=== PATIENT | female | born 1970 | race Caucasian/White ===

== ENCOUNTER → 2020-05-23 08:12 | Outpatient (BNVA) | payer OTHER, SELFPAY | PROVIDERS: Family Provider Nurse Practitioner Family; PCP Nurse Practitioner Family; Visit Provider Internal Medicine | DX: E03.9 Hypothyroidism, unspecified (principal); I10 Essential (primary) hypertension; R53.83 Other fatigue | CPT/HCPCS: 99204 ==

== ENCOUNTER → 2020-06-02 11:03 | Outpatient (BNVA) | payer OTHER, SELFPAY | PROVIDERS: Family Provider Nurse Practitioner Family; PCP Nurse Practitioner Family; Visit Provider Nurse Practitioner Family | DX: E03.9 Hypothyroidism, unspecified (principal) | CPT/HCPCS: 84439; 84443; 86376 ==

== ENCOUNTER 2020-07-28 08:35 | Outpatient (CLI) | payer OTHER, SELFPAY ==
--- NOTE | 2020-07-28 08:50 | MM_ITS ---
WS: [id number] SCREENING DIGITAL MAMMOGRAM WITH CAD HISTORY: SCREENING COMPARISON: 03/05/2019 and 03/03/2018 Bilateral CC and MLO views submitted. Computer aided detection analyzed. Breast composition: There are scattered areas of fibroglandular density. Ovoid asymmetry measuring 10 mm in the medial LEFT breast is probably at the nipple line on the lateral projection. Asymmetry is not as well seen on the lateral projection. RIGHT breast is negative. MM/[place] [id number] IMPRESSION: BI-RADS: 0-Incomplete: Need additional imaging evaluation FOLLOW UP: Need Additional Imaging LEFT breast: Spot compression views (CC and MLO). True ML. Ultrasound to follow if abnormality persists.
== END 2020-07-28 08:36 | disposition home or self-care (01) ==
LOC: RADSHAW 08:37
PROVIDERS: PCP Nurse Practitioner Family; Visit Provider Nurse Practitioner Family
DX: Z12.31 Encounter for screening mammogram for malignant neoplasm of breast (principal)
CPT/HCPCS: 77067

== ENCOUNTER 2020-08-09 10:11 | Outpatient (CLI) | payer OTHER, SELFPAY ==
--- NOTE | 2020-08-09 10:18 | US_ITS ---
WS: [id number] ADDITIONAL VIEWS LEFT MAMMOGRAM LEFT BREAST ULTRASOUND HISTORY: R92.8 - Other abnormal and inconclusive findings on mammogram... COMPARISON: 07/28/2020 LEFT MAMMOGRAM: Spot compression views and true ML. Lobulated mass measuring 7 x 8 mm, 9:00 LEFT breast persists with additional views. No associated cyn cifications. Nodule is at and anterior to middle depth. LEFT BREAST ULTRASOUND, 03/05/2019 and 03/03/2018 2-D and color Doppler imaging submitted. Ultrasound at 9:00 demonstrates a cluster of cysts or small cyst with septations measuring 8 x 4 x 8 mm. No increased vascularity. This corresponds in size and appearance to the mammographic abnormality . US/US breast LT limited* [id number] IMPRESSION: BI-RADS: 3-Probably Benign FOLLOW UP: 6 Month Follow-up Recommend Limited LEFT breast ultrasound in 6 months to reevaluate the complex cyst at 9:00.
== END 2020-08-09 10:12 | disposition home or self-care (01) ==
LOC: RADSHAW 10:15
PROVIDERS: PCP Nurse Practitioner Family; Visit Provider Nurse Practitioner Family
DX: R92.8 Other abnormal and inconclusive findings on diagnostic imaging of breast (principal); N60.02 Solitary cyst of left breast
CPT/HCPCS: 76642; 77065

== ENCOUNTER → 2020-10-02 08:55 | Outpatient (BNVA) | payer OTHER, SELFPAY | PROVIDERS: PCP Nurse Practitioner Family; Visit Provider Obstetrics & Gynecology | DX: I10 Essential (primary) hypertension (principal); N95.1 Menopausal and female climacteric states | CPT/HCPCS: 83001 ==

== ENCOUNTER → 2021-02-07 10:25 | Outpatient (BNVA) | payer OTHER, SELFPAY | PROVIDERS: PCP Nurse Practitioner Family; Visit Provider Internal Medicine | DX: E03.9 Hypothyroidism, unspecified (principal); R53.83 Other fatigue; Z72.820 Sleep deprivation | CPT/HCPCS: 99213 ==

== ENCOUNTER 2021-03-13 10:46 | Outpatient (CLI) | payer OTHER, SELFPAY ==
--- NOTE | 2021-03-13 11:00 | US_ITS ---
WS: [id number] ULTRASOUND LEFT BREAST HISTORY: Six-month follow-up complex cyst at 9:00. COMPARISON: 08/09/2020 TECHNIQUE: 2-D and Doppler. Complex cyst with a small septation at 9:00 at the subareolar region measures 8 x 10 x 5 mm. No incre ased vascularity. No significant increase in size taking into consideration difference in scanning te chnique. No solid component. US/US breast LT limited* [id number] IMPRESSION: BI-RADS: 3-Probably Benign FOLLOW-UP: 6 Month Follow-up Patient to return in July 2021 for annual mammogram. At that time this complex c yst should undergo ultrasound evaluation to document continued stability.
== END 2021-03-13 10:47 | disposition home or self-care (01) ==
LOC: RAD 10:48
PROVIDERS: PCP Nurse Practitioner Family; Visit Provider Nurse Practitioner Family
DX: R92.8 Other abnormal and inconclusive findings on diagnostic imaging of breast (principal)
CPT/HCPCS: 76642

== ENCOUNTER 2021-06-19 09:23 | Day surgery (SDC) | payer OTHER, SELFPAY ==
[2021-06-18 13:53] VITALS: BMI 35.5
[2021-06-19] VITALS (15 sets, daily range): BP systolic 156–212; BP diastolic 86–127; PULSE 60–77; RESP 14–22; TEMP 36.1–37.2; O2SAT 94–99
--- NOTE | 2021-06-19 | US_ITS ---
WS: [id number] ULTRASOUND-GUIDED LEFT BREAST NEEDLE LOCALIZATION CLINICAL INFORMATION: left breast lumpectomy and needle localization COMPARISON: March 13, 2021 FINDINGS: The procedure including risks, benefits, and complications were discussed with the patient who agreed to proceed. Using sterile technique patient was prepped and draped in the usual sterile fashion. Aft er 1% lidocaine utilizing real-time ultrasound guidance 7 cm Kopan's needle was advanced through the 9:00 subareolar breast lesion. Localization wire was deployed and needle was removed. No immediate co mplications. Surgical specimen demonstrates en block resection of the localization wire with gross total resection of the 9:00 lesion. US/US surgical specimen IMPRESSION: 1. Uncomplicated ultrasound-guided LEFT breast wire localization 9:00 position 2. The pathology demonstrates: -Benign breast tissue with apocrine metaplasia, focal chronic inflammation and adenosis. -Microcalcification identified. -Cautery artifact. -Margins are uninvolved and viable. -No malignancy identified. BI-RADS: 2-Benign FOLLOW UP: 1 Year Follow-up Recommend return to annual screening mammography.
--- NOTE | 2021-06-19 09:34 | US_ITS ---
WS: [id number] ULTRASOUND-GUIDED LEFT BREAST NEEDLE LOCALIZATION CLINICAL INFORMATION: left breast lumpectomy and needle localization COMPARISON: March 13, 2021 FINDINGS: The procedure including risks, benefits, and complications were discussed with the patient who agreed to proceed. Using sterile technique patient was prepped and draped in the usual sterile fashion. Aft er 1% lidocaine utilizing real-time ultrasound guidance 7 cm Kopan's needle was advanced through the 9:00 subareolar breast lesion. Localization wire was deployed and needle was removed. No immediate co mplications. Surgical specimen demonstrates en block resection of the localization wire with gross total resection of the 9:00 lesion. US/[place] [id number] IMPRESSION: 1. Uncomplicated ultrasound-guided LEFT breast wire localization 9:00 position 2. The pathology demonstrates: -Benign breast tissue with apocrine metaplasia, focal chronic inflammation and adenosis. -Microcalcification identified. -Cautery artifact. -Margins are uninvolved and viable. -No malignancy identified. BI-RADS: 2-Benign FOLLOW UP: 1 Year Follow-up Recommend return to annual screening mammography.
[2021-06-19 09:58] LABS: OR HCG Qualitative Urine Negative (Negative)
--- NOTE | 2021-06-19 10:26 | SUR.PREOP ---
PATIENT TO RADIOLOGY
--- NOTE | 2021-06-19 11:14 | SUR.PREOP ---
returned from radiology.
[2021-06-19] MEDS: sodium chloride 0.9% 1,000 ML 30 ML IV (11:15)
[2021-06-19] MEDS: acetaminophen 1,000 MG/100 ML PIGGYBACK 400 MG IV (11:16)
--- NOTE | 2021-06-19 11:58 | ANES.PREANE2 ---
Pre-Anesthetic Assessment Height/Weight: Height 1.68 m Weight 99.79 kg Temp Pulse Resp BP Pulse Ox 98.9 F 60 16 170/87 97 06/19/21 10:00 06/19/21 10:00 06/19/21 10:00 06/19/21 10:00 06/19/21 10:00 Preop Diagnosis: Left breast cyst Operation Date: 06/19/21 12:05 Proposed Procedures p Breast Biopsy Needle Localization [id number]/R92.8(Left) - Dennis Arthur MD Familial anesthetic complications: None Was Beta Juve taken within 24 hours: Yes Was Clonidine taken within 24 hours: N/A Last intake: Intake Last Liquid Date 06/18/21 Last Liquid Time 20:00 Last Solid Date 06/18/21 Last Solid Time 19:30 Social No alcohol and No tobacco Exam alert, oriented x 3, clear to auscultation bilaterally and regular rate & rhythm Airway Submandibular: within normal limits Cervical ROM: within normal limits Mallampati: Class II Dentition: full CV/HEM Hypertension Metabolic Thyroid [place] [facility] [place] [place] Back Pain Anesthetic Plan ASA status: 2 Anesthesia: Choice Risk of > 500 ml blood loss (7ml/kg in children): No Medications/Allergies Home Medications Medication Instructions Recorded Confirmed Last Taken Type amlodipine 5 mg tablet 5 mg PO DAILY PRN tab 10/02/20 06/19/21 03/28/21 History levothyroxine 75 mcg capsule 75 mcg PO DAILY #90 cap 11/28/20 06/19/21 06/19/21 Rx (Tirosint) liothyronine 5 mcg tablet (Cytomel) 5 mcg PO DAILY #90 tab 04/12/21 06/19/21 06/19/21 Rx promethazine-DM 6.25 mg-15 mg/5 mL 5 ml PO Q6H PRN 7 Days #118 ml 04/12/21 06/18/21 Unknown Rx oral syrup fluticasone propionate 50 1 spray INTRANASAL BID 06/18/21 06/19/21 06/18/21 History mcg/actuation nasal spray,suspension (Flonase Allergy Relief) ibuprofen 800 mg tablet 800 mg PO TID PRN 06/18/21 06/19/21 06/14/21 History latanoprost 0.005 % eye drops 1 drp OPHTHALMIC (EYE) DAILY 06/18/21 06/19/21 06/18/21 20:00 History metoprolol tartrate 50 mg tablet 50 mg PO BID 06/18/21 06/19/21 06/19/21 07:00 History norgestimate-ethinyl estradiol 1 tab PO DAILY 06/18/21 06/19/21 06/18/21 History 0.18 mg/0.215mg/0.25mg-35 mcg(28)tablet (Tri-Previfem (28)) Allergies Allergy/AdvReac Type Severity Reaction Status Date / Time cephalexin [From Keflex] Allergy swelling Verified 04/12/21 09:40 sulfamethoxazole Allergy sores in Verified 04/12/21 09:40 [From Bactrim] mouth trimethoprim [From Bactrim] Allergy sores in Verified 04/12/21 09:40 mouth Current Medications Generic Name Dose Route Start Last Admin Trade Name Freq PRN Reason Stop Dose Admin Sodium Chloride 1,000 mls @ 30 mls/hr 06/19/21 09:45 06/19/21 11:15 Sodium Chloride 0.9% IV 06/20/21 09:44 30 mls/hr .Q24H VLAD Administration PFSH Anesthesia Medical History (Updated 04/12/21 @ 10:14 by YEYO Lopez) Abnormal mammogram Acute bacterial sinusitis Anxiety and depression Chronic low back pain Cough Environmental and seasonal allergies Essential hypertension Herniated disc Hyperlipidemia Hypothyroidism Lower respiratory infection Surgical History History of back surgery herniated disc Surgergies 1998 and 2003 [place], [place] History of kidney surgery Family History Mother Cancer Thyroid condition Father Heart disease Grandmother Stroke paternal Grandfather Heart disease paternal Family/Other Breast cancer maternal aunt, age onset unknown Denies family history of Colon cancer Ovarian cancer Diabetes Clotting disorder Hyperlipidemia Anesthesia complication Bleeding disorder Hypertension Uterine cancer Social History Alcohol intake: never Data Anesthesia Cardiac Studies: No Data to Display
--- NOTE | 2021-06-19 13:12 | P.HP_ITS ---
Same Day Surgery H&P Indication for Procedure/HPI DATE OF PROCEDURE: June 19, 2021 CHIEF COMPLAINT/INDICATIONFOR SURGICAL PROCEDURE: Left breast lump PREOP DIAGNOSIS: Left breast cyst PLANNED PROCEDURE: Operation Date: 06/19/21 12:05 Proposed Procedures p Breast Biopsy Needle Localization [id number]/R92.8(Left) - Dennis Arthur MD 04/05/2021 This is a pleasant 52 years old female patient referred to my practice with history of left breast cyst that was found on ultrasound: Complex cyst with a small septation at 9:00 at the subareolar region measures 8 x 10 x 5 mm. No increased vascularity. No significant increase in size taking into consideration difference in scanning technique. No solid component. Previous breast biopsies not applicable Personal or family history of breast cancer patient's mom's great aunt Age of menarche 13 years History of menstrual cycles regular History of control pills for 30 years Obstetric history? A0 Mode of delivery vaginal Breast-feeding history no breast-feeding No nipple discharge Self breast examination applicable The patient was found to have a spot on screening mammography Lobulated mass measuring 7 x 8 mm, 9:00 LEFT breast persists with additional views. No associated calcifications. Nodule is at and anterior to middle depth. And patient comes to my practice today interested in removal of the cyst and she is not interested to have follow-up imaging studies ? Peripheral history 06/19/2021 Patient comes today for excision of left breast mass preceded by ultrasound guided needle localization. ROS All systems have been reviewed negative except as per the above or per problem list Medications/Allergies* Home Medications Medication Instructions Recorded Confirmed Type amlodipine 5 mg tablet 5 mg PO DAILY PRN tab 10/02/20 06/19/21 History fluticasone propionate 50 1 spray INTRANASAL BID 06/18/21 06/19/21 History mcg/actuation nasal spray,suspension (Flonase Allergy Relief) ibuprofen 800 mg tablet 800 mg PO TID PRN 06/18/21 06/19/21 History latanoprost 0.005 % eye drops 1 drp OPHTHALMIC (EYE) DAILY 06/18/21 06/19/21 History metoprolol tartrate 50 mg tablet 50 mg PO BID 06/18/21 06/19/21 History norgestimate-ethinyl estradiol 1 tab PO DAILY 06/18/21 06/19/21 History 0.18 mg/0.215mg/0.25mg-35 mcg(28)tablet (Tri-Previfem (28)) Allergies/Adverse Reactions Allergy/AdvReac Type Severity Reaction Status Date / Time cephalexin [From Keflex] Allergy swelling Verified 06/19/21 13:16 sulfamethoxazole Allergy sores in Verified 06/19/21 13:16 [From Bactrim] mouth trimethoprim [From Bactrim] Allergy sores in Verified 06/19/21 13:16 mouth Current Medications: Generic Name Dose Route Start Last Admin Trade Name Freq PRN Reason Stop Dose Admin Sodium Chloride 1,000 mls @ 30 mls/hr 06/19/21 09:45 06/19/21 11:15 Sodium Chloride 0.9% IV 06/20/21 09:44 30 mls/hr .Q24H VLAD Administration Pertinent History/Comorbid Conditions* Medical History (Updated 04/12/21 @ 10:14 by YEYO Lopez) Abnormal mammogram Acute bacterial sinusitis Anxiety and depression Chronic low back pain Cough Environmental and seasonal allergies Essential hypertension Herniated disc Hyperlipidemia Hypothyroidism Lower respiratory infection Surgical History (Updated 10/21/19 @ 22:16 by YEYO Lopez) History of back surgery herniated disc Surgergies 1998 and 2003 [place], [place] History of kidney surgery Family History (Updated 10/02/20 @ 07:56 by Anahi White RN) Heart disease Father Grandfather paternal Breast cancer Family/Other maternal aunt, age onset unknown Cancer Mother Thyroid condition Mother Stroke Grandmother paternal Denies family history of Colon cancer Ovarian cancer Diabetes Clotting disorder Hyperlipidemia Anesthesia complication Bleeding disorder Hypertension Uterine cancer Social History Alcohol intake: never Pertinent Exam Findings alert, oriented x 3, regular rate & rhythm and operative site marked (Left breast was marked in the presence of Conch[employer] nursing staff female chaper) Recommendations Surgery/Procedure today (Excision of left breast lump with needle localization) Coding Level of Care Code Acute Drawer In [employer]oom for Ernie Quintero
[2021-06-19] MEDS: clindamycin 900 MG/50 ML PREMIX 100 MG IV (13:23)
[2021-06-19] MEDS: lidocaine 2% INJ 20 mL INJECTION (14:31)
--- NOTE | 2021-06-19 14:53 | PM.OP ---
Operative Report Date of procedure: June 19, 2021 Pre-op diagnosis: Preop Diagnosis Left breast cyst Post-op diagnosis: same Procedure done: Left partial mastectomy with needle localization Specimens removed/disposition: Left partial mastectomy needle localization wire patrick lateral and short sutures marked superior and long sutures marked posterior Surgeon: Dennis Arthur MD Pulp Mill Supervisor: Surgical davidson Bardales Circulating nurse Cynthia Anesthesia: General (LMA IMAGE ASSEMBLER Shobha) Estimated blood loss: 10 ml Brief History: After patient undergone a needle localization at Radiology Department. Under ultrasound guidance patient was brought to the holding area, I did discuss the images with Dr. Ahumada prior to the procedure. After identifying the patient holding area, the left breast was marked before the procedure by myself, patient was then taken to the operative suite, was placed in supine position, intubated by anesthesia, prophylactic IV antibiotics were given per protocol, left arm was placed in 90? to her body, I was able to take down the tape and dressing on top of the wire without jeopardizing it ,prep and drape of the left pectoralis region was done under the usual sterile technique. Time-out was done verifying the patient's name/date of /planned procedure and destination after the procedure, all were in agreement. After identifying the direction of the wire.I did perform a transverse incision at the site of entrance of the needle used for the localization , dissection was carried on using electrocautery. The localization wire was grasped and pulled into the incision and dissection continued towards the tip of the wire. The breast tissue containing the sonographic abnormality was grasped with Allis forceps and using electrocautery the specimen was dissected free from the surrounding tissue.good margin of normal breast tissue surrounding the mass , and and the specimen was taken out and passed to the circulating nurse to send for radiology and pathology department Specimen was oriented with short suture superior and long suture posterior and needle localization oriented lateral. The specimen was in the form of left partial mastectomy. Later we got the clearance from radiology department that the sonographic abnormality was all included in the specimen.Thorough irrigation of the cavity was done and hemostasis, followed by deep dermal closure by 2-0 Vicryl, then 3-0 Vicryl then 4-0 Monocryl for skin closure followed by Mastisol and Steri-Strips. Lidocaine 2% was injected at the site of the incision. Pressure dressing was applied followed by fluffs and a sports bra Patient tolerated the procedure well, count of instruments and sponges were completed at the end of the procedure. And then patient was taken to the recovery area in stable condition. I was present for the whole entire procedure Procedure: Left partial mastectomy with needle localization Ultrasound specimen was cleared by Dr. Mejía Closure in layers Mastisol Steri-Strip
[2021-06-19] MEDS: hyDRALAzine 20 mg/mL INJ 1 mL 10 MG IVP (15:30)
--- NOTE | 2021-06-19 15:50 | ANE.PACU2 ---
Inpatient post-anesthesia follow up: Airway intact: Yes Vital signs: Temperature 97 F Pulse Rate 65 Respiratory Rate 21 Blood Pressure 163/105 Pulse Oximetry 97 Oxygen Delivery Me thod Room Air Oxygen Flow Rate Fraction of Inspir ed Oxygen Hydration adequate: Yes Nausea and vomiting: No Pain level: 1 Mental status: Baseline Additional Comments: Some hypertension, rx'd with hydralazine
[2021-06-19] MEDS: HYDROcodone-acetaminophen 5-325 mg Tablet 1 TAB PO (16:15)
== END 2021-06-19 16:28 | disposition home or self-care (01) ==
PROVIDERS: PCP Nurse Practitioner Family; Visit Provider Surgery
PROC: (CPT 19301; principal; 2021-06-19 12:00)
DX: N60.02 Solitary cyst of left breast (principal); I10 Essential (primary) hypertension; E78.5 Hyperlipidemia, unspecified; E03.9 Hypothyroidism, unspecified
CPT/HCPCS: 19301; 19285; 84703; 88307; C1889; J0360; J1100; J2405; J2704; J3010; J3490; J7030

== ENCOUNTER 2021-08-22 11:00 | Outpatient (CLI) | payer OTHER, SELFPAY | END 2021-08-22 11:01 | disposition home or self-care (01) | LOC: SLEEP 08-23 16:39 | PROVIDERS: PCP Nurse Practitioner Family; Visit Provider Internal Medicine | DX: G47.33 Obstructive sleep apnea (adult) (pediatric) (principal) | CPT/HCPCS: G0399 ==

== ENCOUNTER → 2021-10-05 11:03 | Outpatient (BNVA) | payer OTHER, SELFPAY | PROVIDERS: PCP Nurse Practitioner Family; Visit Provider Nurse Practitioner | DX: Z00.00 Encounter for general adult medical examination without abnormal findings (principal) | CPT/HCPCS: 88175 ==

== ENCOUNTER → 2021-12-07 11:42 | Outpatient (BNVA) | payer OTHER, SELFPAY | PROVIDERS: PCP Nurse Practitioner Family; Visit Provider Nurse Practitioner Family | DX: Z01.89 Encounter for other specified special examinations (principal) | CPT/HCPCS: 87070; 87176; 87186; 87205 ==

== ENCOUNTER 2022-01-14 07:50 | Outpatient (CLI) | payer OTHER, SELFPAY ==
--- NOTE | 2022-01-14 08:00 | US_ITS ---
WS: [id number] ULTRASOUND BREAST LEFT TECHNIQUE: Ultrasound left breast focused area of concern. CLINICAL INFORMATION: T81.30XA - Disruption of wound, unspecified, initial enco... COMPARISON: March 13, 2021 FINDINGS: Ultrasound LEFT breast 9:00 position and 2:00 position. Cyst was removed at the 9:00 o'clock position . No evidence of residual cystic lesion in this area. Ultrasound 2:00 position in the area of wound/ulceration. No evidence of drainable fluid collection o r abscess in this area. No other suspicious findings. US/US breast LT complete [id number] IMPRESSION: Recommend annual screening mammography. BI-RADS 2 benign FOLLOW UP: 1 year
== END 2022-01-14 07:51 | disposition home or self-care (01) ==
PROVIDERS: PCP Nurse Practitioner Family; Visit Provider Surgery
DX: T81.30XA Disruption of wound, unspecified, initial encounter (principal)
CPT/HCPCS: 76641

== ENCOUNTER 2022-02-05 10:20 | Day surgery (SDC) | payer OTHER, SELFPAY ==
[2022-02-04 12:45] VITALS: BMI 34.2
[2022-02-05] VITALS (7 sets, daily range): BP systolic 120–142; BP diastolic 74–91; PULSE 60–69; RESP 12–18; TEMP 36.4–36.8; O2SAT 95–99
--- NOTE | 2022-02-05 11:06 | ANES.PREANE2 ---
Pre-Anesthetic Assessment Height/Weight: Height 1.68 m Weight 96.162 kg Temp Pulse Resp BP Pulse Ox O2 Del Method 97.5 F L 61 18 120/74 99 02/05/22 10:48 02/05/22 10:48 02/05/22 10:48 02/05/22 10:48 02/05/22 10:48 02/05/22 10:49 Preop Diagnosis: Left breast wound Operation Date: 02/05/22 12:00 Proposed Procedures p : Debridement of Left Breast Wound CPT-22672 L98.492(Left) - Dennis Arthur MD Familial anesthetic complications: None Was Beta Juve taken within 24 hours: N/A Was Clonidine taken within 24 hours: N/A Last intake: Intake Last Liquid Date 02/04/22 Last Liquid Time 20:00 Last Solid Date 02/04/22 Last Solid Time 18:00 Social No alcohol and No tobacco Exam alert, oriented x 3, clear to auscultation bilaterally and regular rate & rhythm Airway Mallampati: Class II Dentition: full Pulmonary Sleep Apnea (Mild) CV/HEM Hypertension Metabolic Thyroid Disease Anesthetic Plan ASA status: 3 Anesthesia: General Risk of > 500 ml blood loss (7ml/kg in children): No Medications/Allergies Home Medications Medication Instructions Recorded Confirmed Last Taken Type fluticasone propionate 50 1 spray intranasal BID 06/18/21 02/04/22 06/18/21 History mcg/actuation nasal spray,suspension (Flonase Allergy Relief) ibuprofen 800 mg tablet 800 mg PO TID PRN Pain 06/18/21 02/05/22 01/29/22 History latanoprost 0.005 % eye drops 1 drp ophthalmic (eye) DAILY 06/18/21 02/04/22 02/04/22 History liothyronine 5 mcg tablet (Cytomel) 5 mcg PO DAILY #90 tabs 08/07/21 02/05/22 02/05/22 07:30 Rx norgestimate-ethinyl estradiol 1 tab PO DAILY #28 tabs 10/08/21 02/05/22 02/04/22 Rx 0.18 mg/0.215mg/0.25mg-35 mcg(28)tablet clonidine HCl 0.1 mg tablet 0.1 mg PO BID PRN hypertensive 10/30/21 02/05/22 Unknown Rx emergency #30 tabs levothyroxine 75 mcg capsule 75 mcg PO DAILY #90 caps 11/12/21 02/04/22 02/05/22 07:00 Rx (Tirosint) amlodipine 10 mg tablet 10 mg PO DAILY #90 tabs 11/19/21 02/04/22 02/05/22 07:30 Rx metoprolol tartrate 50 mg tablet See Rx Instructions .Route 01/14/22 02/05/22 02/05/22 07:30 Rx .COMPLEX #60 tabs Allergies Allergy/AdvReac Type Severity Reaction Status Date / Time cephalexin [From Keflex] Allergy swelling Verified 02/05/22 10:41 [facility] Anesthesia Medical History Abnormal mammogram Acute bacterial sinusitis Anxiety and depression Chronic low back pain Cough Environmental and seasonal allergies Essential hypertension Herniated disc Hyperlipidemia Hypothyroidism Lower respiratory infection Surgical History History of back surgery herniated disc Surgergies 1998 and 2003 [place], [place] History of kidney surgery Family History Mother Cancer Thyroid condition Father Heart disease Grandmother Stroke paternal Grandfather Heart disease paternal Family/Other Breast cancer maternal aunt, age onset unknown Denies family history of Colon cancer Ovarian cancer Diabetes Clotting disorder Hyperlipidemia Anesthesia complication Bleeding disorder Hypertension Uterine cancer Social History Smoking and tobacco status: never smoked Alcohol intake: never Female Reproductive History Date of last menstrual period: 01/28/22 Data Anesthesia Cardiac Studies: No Data to Display
[2022-02-05] MEDS: heparin 5,000 unit/mL INJ 1 mL 2000 UNIT SUBCUT (11:16)
[2022-02-05] MEDS: sodium chloride 0.9% 1,000 ML 30 ML IV (11:52)
[2022-02-05] MEDS: acetaminophen 1,000 MG/100 ML PIGGYBACK 400 MG IV (11:52)
--- NOTE | 2022-02-05 12:01 | W.PM.OPSUD ---
Surgery/Procedure H&P Update DATE OF PROCEDURE: February 05, 2022 DATE H&P PERFORMED: 01/25/22 H&P UPDATE INFORMATION: I have reviewed H&P completed within last 30 days, I have examined patient prior to procedure and No changes to prior documentation PREOP DIAGNOSIS: Left breast wound PRIMARY INDICATION FOR PROCEDURE: The same PLANNED PROCEDURE: Operation Date: 02/05/22 12:00 Proposed Procedures p : Debridement of Left Breast Wound CPT-16909 L98.492(Left) - Dennis Arthur MD
[2022-02-05] MEDS: clindamycin 900 MG/50 ML PREMIX 100 MG IV (12:13)
[2022-02-05 12:14] LABS: OR HCG Qualitative Urine Negative (Negative)
[2022-02-05] MEDS: lidocaine 1% INJ 20 mL SUBCUT (12:14)
--- NOTE | 2022-02-05 12:50 | PM.OP ---
Operative Report Date of procedure: February 05, 2022 Pre-op diagnosis: Preop Diagnosis Left breast wound Procedure done: Sharp debridement of left breast wound Placement of vessel loop Implants: Vessel loop. Specimens removed/disposition: Tissues from left breast wound Surgeon: Dennis Arthur MD Talent Acquisition Associate: pharmaceutical laboratory technician Angela Anesthesia: MAC (YADIRA's Jean Carlos) Estimated blood loss (mL): 5 Procedure: After identifying the patient holding area, the left breast wound was marked before the procedure by myself presence of nursing staff female gem setter Kinza. Patient was then taken to the operative suite, was placed in supine position, IV antibiotics were given per protocol,IV propofol was infused by the anesthesia provider, prep and drape of the left breast under the usual sterile technique. Time-out was done verifying the patient's name/date of /planned procedure and destination after the procedure, all were in agreement. Started by excising the unhealthy indurated tissues of the wound using sharp curette. Copious and thorough irrigation was achieved. Local lidocaine 1% was injected at the beginning of the procedure, a counter incision was created at the skin level and went all the way down to the subcutaneous tissues about 4:00 oclock and a hemostat was thrusted and vessel loop was delivered and tied down with 3-0 silk for future flossing. Tissues were obtained and sent for cultures and sensitivity Posterior lateral aspect of the right calf region Wound measurement ; Pre Debridement measurements; 4 x 0.5 cm Post-debridement measurement; 6 x 0.[address] to the breast tissues Sharp debridement all the way to the healthier subcutaneous level and breast tissues Appropriate hemostasis was achieved. Quarter inch Nu Gauze was used to pack the wound followed by fluffs and ABDs and sports bra. Patient tolerated the procedure well, count of needles, instruments and sponges were completed at the end of the procedure. Patient was then taken to the recovery area in stable condition. I was present for the whole entire procedure
--- NOTE | 2022-02-05 16:29 | ANE.PACU2 ---
Inpatient post-anesthesia follow up: Airway intact: Yes Vital signs: Temperature 98.2 F Pulse Rate 60 Respiratory Rate 18 Blood Pressure 124/82 Pulse Oximetry 96 Oxygen Delivery Me thod Room Air Oxygen Flow Rate Fraction of Inspir ed Oxygen Hydration adequate: Yes Nausea and vomiting: No Pain level: 1 Mental status: Baseline
== END 2022-02-05 14:03 | disposition home or self-care (01) ==
PROVIDERS: Visit Provider Surgery
PROC: (CPT 11042; principal; 2022-02-05 11:50)
DX: S21.002A Unspecified open wound of left breast, initial encounter (principal); X58.XXXA Exposure to other specified factors, initial encounter; G47.30 Sleep apnea, unspecified; I10 Essential (primary) hypertension; E78.5 Hyperlipidemia, unspecified; E03.9 Hypothyroidism, unspecified
CPT/HCPCS: 11042; 81025; 84703; 87070; 87077; 87176; 87186; 87205; J0131; J1644; J2250; J2704; J3010; J3490; J7030

== ENCOUNTER 2022-10-18 11:16 | Outpatient (CLI) | payer OTHER, SELFPAY ==
--- NOTE | 2022-10-18 11:33 | MM_ITS ---
WS: [id number] BILATERAL 3D TOMOSYNTHESIS DIGITAL SCREENING MAMMOGRAPHY WITH CAD CLINICAL INFORMATION: SCREENING HISTORY: Screening mammogram. No current complaints. COMPARISON: 2020 TECHNIQUE: Bilateral CC and MLO views. FINDINGS: Scattered fibroglandular densities bilaterally. No suspicious focal mass, asymmetry, calcifications, or architectural distortion. No evidence of malignancy. Postoperative changes about the LEFT nipple d ue to prior lumpectomy. Incidental punctate calcifications MM/[place] [id number] IMPRESSION: BI-RADS: 2-Benign FOLLOW UP: 1 Year Follow-up Recommend return to annual screening mammography.
== END 2022-10-18 11:17 | disposition home or self-care (01) ==
LOC: RAD 11:20 → MOBLMAM 11:32
PROVIDERS: PCP Nurse Practitioner Family; Visit Provider Nurse Practitioner Family
DX: Z12.31 Encounter for screening mammogram for malignant neoplasm of breast (principal)
CPT/HCPCS: 77063; 77067

== ENCOUNTER 2023-10-29 09:11 | Outpatient (CLI) | payer OTHER, SELFPAY ==
--- NOTE | 2023-10-29 09:20 | MM_ITS ---
WS: [id number] BILATERAL SCREENING DIGITAL TOMOSYNTHESIS MAMMOGRAM WITH CAD HISTORY: SCREENING COMPARISON: 10/18/2022, 08/09/2020 and 03/03/2018 Bilateral CC and MLO views with tomosynthesis and synthetic mammography submitted. Computer aided det ection analyzed. Breast composition: There are scattered areas of fibroglandular density. No suspicious masses, microc alcifications or architectural distortion. Postoperative scar with volume loss in the lateral anterio r LEFT breast above the nipple from a prior lumpectomy. Benign calcifications in each breast. MM/[place] [id number] IMPRESSION: BI-RADS: 2-Benign FOLLOW UP: 1 Year Follow-up
== END 2023-10-29 09:12 | disposition home or self-care (01) ==
PROVIDERS: PCP Nurse Practitioner Family; Visit Provider Obstetrics & Gynecology Hospice and Palliative Medicine
DX: Z12.31 Encounter for screening mammogram for malignant neoplasm of breast (principal); R92.323 Mammographic fibroglandular density, bilateral breasts
CPT/HCPCS: 77063; 77067

== ENCOUNTER 2024-11-02 08:55 | Outpatient (CLI) | payer OTHER, SELFPAY ==
--- NOTE | 2024-11-02 09:00 | MM_ITS ---
WS: [id number] BILATERAL 3D TOMOSYNTHESIS DIGITAL SCREENING MAMMOGRAPHY WITH CAD CLINICAL INFORMATION: SCREENING HISTORY: Screening mammogram. No current complaints. COMPARISON: 2023 TECHNIQUE: Bilateral CC and MLO views. FINDINGS: Scattered fibroglandular densities bilaterally. No suspicious focal mass, asymmetry, calcifications, or architectural distortion. No evidence of malignancy. Incidental punctate calcifications. MM/MM [facility] tomosynthesis [id number] IMPRESSION: DENSITY: There are scattered areas of fibroglandular density. BI-RADS: 2 - Benign. FOLLOW UP: 1 Year Follow-up Recommend return to annual screening mammography. Note reported palpable area along the RIGHT axilla/ribs is not included on this study. Area can be further evaluated with ultrasound if clinical concern.
== END 2024-11-02 08:56 | disposition home or self-care (01) ==
LOC: MOBLMAM 08:59
PROVIDERS: PCP Nurse Practitioner Family; Visit Provider Nurse Practitioner Family
DX: Z12.31 Encounter for screening mammogram for malignant neoplasm of breast (principal)
CPT/HCPCS: 77063; 77067